=== PATIENT | female | born 1975 | race Caucasian/White ===

== ENCOUNTER 2017-08-10 22:06 | Emergency (ER) | payer MEDICAID ==
[~2017-08-10] VITALS: Ht 154.9 cm; Wt 68.0 kg
[2017-08-10 22:17] VITALS: BP 119/75
== END 2017-08-10 23:37 | disposition home or self-care (01) ==
LOC: ER 22:11
DX: R21 Rash and other nonspecific skin eruption (principal)
CPT/HCPCS: A4606; Z7610

== ENCOUNTER 2017-10-14 23:53 | Emergency (ER) | payer MEDICAID ==
[~2017-10-14] VITALS: Ht 154.9 cm; Wt 67.1 kg
[2017-10-15] MEDS ORDERED: IV NS 0.9% 500 ML BAG IV ONE (01:30)
[2017-10-15] MEDS ORDERED: ONDANSETRON HCL/PF 4 MG/2 ML VIAL IVP ONE (01:30)
[2017-10-15] MEDS ORDERED: HYDROMORPHONE INJ 2 MG/ML DISP.SYRIN IV ONE (01:30)
[2017-10-15] MEDS ORDERED: methylPREDNISolone SOD SUCC 125 MG/2ML VIAL IV ONE (01:30)
[2017-10-15] MEDS ORDERED: ONDANSETRON HCL/PF 4 MG/2 ML VIAL ONE (01:32)
[2017-10-15] MEDS ORDERED: methylPREDNISolone SOD SUCC 125 MG/2ML VIAL ONE (01:32)
[2017-10-15] MEDS ORDERED: HYDROMORPHONE INJ 2 MG/ML DISP.SYRIN ONE (01:33)
[2017-10-15 01:57] LABS: BASOPHILS # (AUTO) 0.1 /CMM (0.0-0.2); BASOPHILS % (AUTO) 1.2 % (0.0-2.0); EOSINOPHILS # (AUTO) 0.1 /CMM (0.0-0.7); EOSINOPHILS % (AUTO) 0.6 % (0.0-6.0); HEMATOCRIT 41 % (33-45); HEMOGLOBIN 13.7 g/dL (11.5-14.8); LYMPHOCYTES # (AUTO) 3.6 /CMM (0.8-4.8); LYMPHOCYTES % (AUTO) 32.1 % (20.0-44.0); MEAN CORPUSCULAR HEMOGLOBIN 29 PG (26.0-33.0); MEAN CORPUSCULAR HGB CONC 33 g/dl (31.0-36.0); MEAN CORPUSCULAR VOLUME 87 fL (82-100); MONOCYTES # (AUTO) 0.5 /CMM (0.1-1.30); MONOCYTES % (AUTO) 4.4 % (2.0-12.0); NEUTROPHILS # (AUTO) 6.9 /CMM (1.8-8.9); NEUTROPHILS % (AUTO) 61.7 % (43.0-81.0); PLATELET COUNT (AUTO) 306 /CMM (150-450); RDW COEFFICIENT OF VARIATION 12.6 (11.5-15.0); RED BLOOD CELL COUNT(AUTO) 4.75 MIL/uL (4.0-5.2); WHITE BLOOD COUNT (AUTO) 11.2 K/uL (4.3-11.0)
[2017-10-15 02:06] LABS: CALCIUM, SERUM 9.2 mg/dL (8.5-10.1); CREATININE 0.8 mg/dL (0.6-1.3); POTASSIUM 3.2 mmol/L (3.5-5.1)
[2017-10-15 02:12] LABS: ALBUMIN 4.2 g/dL (3.4-5.0); BILIRUBIN,DIRECT 0.1 mg/dL (0.0-0.2); TOTAL PROTEIN, SERUM 8.3 g/dL (6.4-8.2)
[2017-10-15 02:24] LABS: APPEARANCE,URINE SL CLOUDY (CLEAR); BILIRUBIN,URINE NEGATIVE (NEGATIVE); BLOOD, URINE 3+ Ery/uL (NEGATIVE); COLOR,URINE YELLOW (YELLOW); KETONES,URINE 1+ (NEGATIVE); LEUKOCYTE ESTERASE ,URINE NEGATIVE (NEGATIVE); NITRITE, URINE NEGATIVE (NEGATIVE); PROTEIN,URINE NEGATIVE (NEGATIVE); UGLUCOSE NEGATIVE (NEGATIVE); UROBILINOGEN,URINE 0.2 EU/dL (0.2)
[2017-10-15 02:30] LABS: BACTERIA,URINE Few /HPF (None Seen); SQUAMOUS EPITHELIAL CELL,UR Few /HPF (None Seen)
--- NOTE | 2017-10-15 02:40 | NUR ---
PT TO CT.
--- NOTE | 2017-10-15 03:40 | NUR ---
PT NOTED WITH STEADY GAIT.
--- NOTE | 2017-10-15 04:10 | NUR ---
Patient discharged to home in stable condition. Written and verbal after care instructions given. Patient verbalizes understanding of instruction. pt. ambulatory with a steady gait. pt left hospital in stable condition with family.
[2017-10-15 04:12] VITALS: BP 125/80
== END 2017-10-15 04:15 | disposition home or self-care (01) ==
LOC: ER 23:54
DX: M51.26 Other intervertebral disc displacement, lumbar region (principal)
CPT/HCPCS: 36415; 72131; 80048; 80076; 81001; 84703; 85025; 96374; 96375; 99285; A4606; J1170; J2405; J2930; J7040; Z7610; 81000-TC